=== PATIENT | female | born 1935 | race Caucasian/White ===

== ENCOUNTER 2021-06-25 15:03 | Emergency (ER) | payer MEDICARE, OTHER ==
[~2021-06-25] VITALS: Ht 154.9 cm; Wt 95.7 kg
[~2021-06-25 15:03] MED LIST: ATOR40TA PO; CARB1TAB22 PO; FURO20TA3 PO; HYDR-2761 PO; IRON18TA PO; METO25TA4 PO; MULT-245 PO; ROPI2TAB10 PO; TEMA15CA PO
--- NOTE | 2021-06-25 15:23 | PHYS DOC ---
Past Medical History Additional Past Medical Histor: Parkinson's (JUAN JOSE MENDIETA) Additional Past Surgical Histo: Valve replacement 01/20 (JUAN JOSE MENDIETA) Smoking Status: Former Smoker (JUAN JOSE MENDIETA) Adult General Chief Complaint Chief Complaint: CHEST PAIN HPI HPI Patient is a 86 year old female who presents via EMS from home with 3 days of back pain that began radiating to her chest last night. Patient is a poor historian. She states she has had left-sided back pain for the past 3 days, which began radiating to her central chest last night. She describes the pain as aching, like a "muscle cramp that will not let loose." She rates her pain / en route, though EMS says that she was grimacing and appeared in distress secondary to pain. Patient reports the pain has gotten worse since onset. Patient received 6 morphine and 325 aspirin via EMS, and now rates that her pain is 0. She states she has been "stretching to get things" more often than normal. Patient has past medical history that includes Parkinson's and a valve replacement in 12/2020, per EMS. Patient denies using any oxygen at home. EMS reports patient's blood glucose was 117 and her blood pressure was 130s/70s. Patient states she does have a medication list, but it is not with her right now. Patient's daughter is on the way and can hopefully provide more information on the patient's past medical history. (JUAN JOSE MENDIETA) Review of Systems Review of Systems Constitutional: Denies fever or chills Eyes: Denies change in visual acuity, redness, or eye pain HENT: Denies nasal congestion or sore throat Respiratory: Denies cough or shortness of breath Cardiovascular: See HPI GI: Denies abdominal pain, nausea, vomiting, bloody stools or diarrhea : Denies dysuria or hematuria Musculoskeletal: See HPI Integument: Denies rash or skin lesions Neurologic: Denies headache, focal weakness or sensory changes (JUAN JOSE MENDIETA) Allergies Allergies Allergies Coded Allergies Type Severity Reaction Last Updated Verified No Known Drug Allergies 06/25/21 No (ADONIS MALHOTRA DO) Physical Exam Physical Exam Constitutional: Well developed, well nourished, no acute distress, non-toxic appearance. HENT: Normocephalic, atraumatic, bilateral external ears normal, oropharynx moist, nose normal. Eyes: PERRLA, EOMI, conjunctiva normal, no discharge. Neck: Normal range of motion, no tenderness, supple, no stridor. Cardiovascular: Heart rate regular rhythm, no obvious murmur. Lungs & Thorax: Breath sounds diminished anteriorly in bilateral bases. No wheezing, rales, rhonchi. Abdomen: Protuberant abdomen, bowel sounds normal, soft, no tenderness, no masses, no pulsatile masses. Skin: Warm, dry, no erythema, no rash. Back: No step-offs, no bony tenderness, left-sided thoracic paraspinal tenderness appreciated, no CVA tenderness. Extremities: No tenderness, no cyanosis, no clubbing, ROM intact, no edema. Neurologic: Alert and oriented x3, motor strength 4/5 in extremities x4 consistent with age, normal sensory function, no focal deficits noted. Resting tremor noted consistent with history of Parkinson's disease. (JUAN JOSE MENDIETA) Current Patient Data Vital Signs Vital Signs Date Time Temp Pulse Resp B/P (MAP) Pulse Ox O2 Delivery O2 Flow Rate FiO2 06/25/21 20:29 90 20 165/66 (99) Room Air 06/25/21 20:07 92 06/25/21 15:19 97.8 2.0 97.8 (ADONIS MALHOTRA ) Lab Values Laboratory Tests Test 06/25/21 15:52 06/25/21 16:30 06/25/21 18:40 06/25/21 19:32 White Blood Count 7.4 x10^3/uL (4.0-11.0) Red Blood Count 3.73 x10^6/uL (3.50-5.40) Hemoglobin 9.2 g/dL (12.0-15.5) L Hematocrit 28.7 % (36.0-47.0) L Mean Corpuscular Volume 77 fL (79-100) L Mean Corpuscular Hemoglobin 25 pg (25-35) Mean Corpuscular Hemoglobin Concent 32 g/dL (31-37) Red Cell Distribution Width 18.3 % (11.5-14.5) H Platelet Count 351 x10^3/uL (140-400) Neutrophils (%) (Auto) 66 % (31-73) Lymphocytes (%) (Auto) 20 % (24-48) L Monocytes (%) (Auto) 9 % (0-9) Eosinophils (%) (Auto) 4 % (0-3) H Basophils (%) (Auto) 1 % (0-3) Neutrophils # (Auto) 4.9 x10^3/uL (1.8-7.7) Lymphocytes # (Auto) 1.5 x10^3/uL (1.0-4.8) Monocytes # (Auto) 0.7 x10^3/uL (0.0-1.1) Eosinophils # (Auto) 0.3 x10^3/uL (0.0-0.7) Basophils # (Auto) 0.1 x10^3/uL (0.0-0.2) Sodium Level 137 mmol/L (136-145) Potassium Level 4.6 mmol/L (3.5-5.1) Chloride Level 102 mmol/L (98-107) Carbon Dioxide Level 29 mmol/L (21-32) Anion Gap 6 (6-14) Blood Urea Nitrogen 15 mg/dL (7-20) Creatinine 0.8 mg/dL (0.6-1.0) Estimated GFR (Cockcroft-Gault) 68.2 BUN/Creatinine Ratio 19 (6-20) Glucose Level 102 mg/dL (70-99) H Calcium Level 9.2 mg/dL (8.5-10.1) Total Bilirubin 0.4 mg/dL (0.2-1.0) Aspartate Amino Transferase (AST) 36 U/L (15-37) Alanine Aminotransferase (ALT) 16 U/L (14-59) Alkaline Phosphatase 137 U/L (46-116) H Troponin I Quantitative < 0.017 ng/mL (0.000-0.055) < 0.017 ng/mL (0.000-0.055) Total Protein 7.1 g/dL (6.4-8.2) Albumin 3.3 g/dL (3.4-5.0) L Albumin/Globulin Ratio 0.9 (1.0-1.7) L Prothrombin Time 12.2 SEC (11.7-14.0) Prothrombin Time INR 0.9 (0.8-1.1) Urine Collection Type Unknown Urine Color Yellow Urine Clarity Cloudy Urine pH 7.0 (<5.0-8.0) Urine Specific [place] 1.015 (1.000-1.030) Urine Protein Negative mg/dL (NEG-TRACE) Urine Glucose (UA) Negative mg/dL (NEG) Urine Ketones (Stick) Negative mg/dL (NEG) Urine Blood Negative (NEG) Urine Nitrite Negative (NEG) Urine Bilirubin Negative (NEG) Urine Urobilinogen Dipstick 0.2 mg/dL (0.2 mg/dL) Urine Leukocyte Esterase Negative (NEG) Urine RBC 3-5 /HPF (0-2) Urine WBC 0 /HPF (0-4) Urine Squamous Epithelial Cells Mod /LPF Urine Amorphous Sediment Present /HPF Urine Bacteria 0 /HPF (0-FEW) Urine Hyaline Casts Few /HPF Laboratory Tests 06/25/21 15:52 Laboratory Tests 06/25/21 15:52 (ADONIS MALHOTRA DO) Lab Values Laboratory Tests Test 06/25/21 15:52 06/25/21 16:30 06/25/21 18:40 White Blood Count 7.4 x10^3/uL (4.0-11.0) Red Blood Count 3.73 x10^6/uL (3.50-5.40) Hemoglobin 9.2 g/dL (12.0-15.5) L Hematocrit 28.7 % (36.0-47.0) L Mean Corpuscular Volume 77 fL (79-100) L Mean Corpuscular Hemoglobin 25 pg (25-35) Mean Corpuscular Hemoglobin Concent 32 g/dL (31-37) Red Cell Distribution Width 18.3 % (11.5-14.5) H Platelet Count 351 x10^3/uL (140-400) Neutrophils (%) (Auto) 66 % (31-73) Lymphocytes (%) (Auto) 20 % (24-48) L Monocytes (%) (Auto) 9 % (0-9) Eosinophils (%) (Auto) 4 % (0-3) H Basophils (%) (Auto) 1 % (0-3) Neutrophils # (Auto) 4.9 x10^3/uL (1.8-7.7) Lymphocytes # (Auto) 1.5 x10^3/uL (1.0-4.8) Monocytes # (Auto) 0.7 x10^3/uL (0.0-1.1) Eosinophils # (Auto) 0.3 x10^3/uL (0.0-0.7) Basophils # (Auto) 0.1 x10^3/uL (0.0-0.2) Sodium Level 137 mmol/L (136-145) Potassium Level 4.6 mmol/L (3.5-5.1) Chloride Level 102 mmol/L (98-107) Carbon Dioxide Level 29 mmol/L (21-32) Anion Gap 6 (6-14) Blood Urea Nitrogen 15 mg/dL (7-20) Creatinine 0.8 mg/dL (0.6-1.0) Estimated GFR (Cockcroft-Gault) 68.2 BUN/Creatinine Ratio 19 (6-20) Glucose Level 102 mg/dL (70-99) H Calcium Level 9.2 mg/dL (8.5-10.1) Total Bilirubin 0.4 mg/dL (0.2-1.0) Aspartate Amino Transferase (AST) 36 U/L (15-37) Alanine Aminotransferase (ALT) 16 U/L (14-59) Alkaline Phosphatase 137 U/L (46-116) H Troponin I Quantitative < 0.017 ng/mL (0.000-0.055) < 0.017 ng/mL (0.000-0.055) Total Protein 7.1 g/dL (6.4-8.2) Albumin 3.3 g/dL (3.4-5.0) L Albumin/Globulin Ratio 0.9 (1.0-1.7) L Prothrombin Time 12.2 SEC (11.7-14.0) Prothrombin Time INR 0.9 (0.8-1.1) Laboratory Tests 06/25/21 15:52 Laboratory Tests 06/25/21 15:52 (JUAN JOSE MENDIETA) EKG EKG EKG Interpreted by Dr. Dooley at 1514: Regular rate 80 bpm with possible atrial flutter. No PACs. No PVCs. Additionally, possible peaked T waves in leads V2V5. Significant artifact secondary to Parkinson's tremor. EKG Interpreted by Dr. Malhotra at 1855: Regular rate and rhythm 81 bpm with no ectopic beats. No STEMI. (JUAN JOSE MENDIETA) Radiology/Procedures Radiology/Procedures PROCEDURE: PORTABLE CHEST 1V AP chest. HISTORY: Chest pain AP view was taken of the chest. Heart is normal in size. The aorta is tortuous. There is linear scarring or atelectasis in the left lung base. There is minimal scarring or atelectasis at the right costophrenic angle. There are no new confluent infiltrates. The aorta is tortuous without change. IMPRESSION: 1. Mild basilar linear scarring or atelectasis. 2. No new infiltrates. Electronically signed by: Naldo Camargo MD (06/25/2021 3:32 PM) [facility] (JUAN JOSE MENDIETA) Course & Med Decision Making Course & Med Decision Making Pertinent Labs and Imaging studies reviewed. (See chart for details) Patient's daughter did not have a lot of additional information regarding the patient's past medical history. She states that the patient takes "a lot of medications every day." She believes that the valve that was replaced in December of this year was her aortic valve, but she is unsure. Daughter states that patient is now on a blood thinner. 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 Patient's daughter states that the patient lives on the main floor of her home mostly by herself, however a close family friend has rented out the basement for years and helps take care of the patient. In further questioning, it is revealed that the patient has been doing some physical therapy work that includes an elliptical. Patient is not typically active on a daily basis. She has recently had increased physical activity. Work-up today did not reveal any cardiac etiology of the patient's symptoms. Patient will be discharged home with instruction to take [id number] Tylenol for body aches. She should follow-up with her primary care provider regarding her current symptoms. As she has no urinary symptoms, she will be contacted if urinalysis comes back positive for UTI. Patient and daughter understand and are agreeable to discharge plan. (JUAN JOSE MENDIETA) Course & Med Decision Making I have participated in the care of this patient and I have reviewed and agree with all pertinent clinical information above including history, exam, and recommendations. Adonis Malhotra DO (ADONIS MALHOTRA DO) Shola Disclaimer Dragon Disclaimer This electronic medical record was generated, in whole or in part, using a voice recognition dictation system. (JUAN JOSE MENDIETA) Departure Departure Impression: Primary Impression: Muscle strain of shoulder region Additional Impression: Anemia Disposition: 01 HOME / SELF CARE / HOMELESS Condition: STABLE Referrals: TONY LING MD (PCP) Patient Instructions: Muscle Strain, [id number] Additional Instructions: Your work-up today did not show any cardiac events. You may follow-up with your primary care provider regarding some anemia shown on lab work and any further muscle pain secondary to physical therapy. Please return to the emergency department if your pain worsens or you develop new symptoms. Problem Qualifiers Primary Impression: Muscle strain of shoulder region Encounter type: initial encounter Laterality: left Qualified Codes: S46.912A - Strain of unspecified muscle, fascia and tendon at shoulder and upper arm level, left arm, initial encounter Additional Impression: Anemia Anemia type: unspecified type Qualified Codes: D64.9 - Anemia, unspecified JUAN JOSE MENDIETA Jun 25, 2021 15:23 ADONIS MALHOTRA DO Jun 25, 2021 21:27
--- NOTE | 2021-06-25 15:34 | RAD ---
AP chest. HISTORY: Chest pain AP view was taken of the chest. Heart is normal in size. The aorta is tortuous. There is linear scarr ing or atelectasis in the left lung base. There is minimal scarring or atelectasis at the right costo phrenic angle. There are no new confluent infiltrates. The aorta is tortuous without change. IMPRESSION: 1. Mild basilar linear scarring or atelectasis. 2. No new infiltrates. Electronically signed by: Naldo Camargo MD (06/25/2021 3:32 PM) [facility]
[2021-06-25 16:04] LABS: BASO # 0.1 x10^3/uL (0.0-0.2); BASO % 1 % (0-3); EOS # 0.3 x10^3/uL (0.0-0.7); EOS % 4 % (0-3); HEMATOCRIT 28.7 % (36.0-47.0); HEMOGLOBIN 9.2 g/dL (12.0-15.5); LYMPH # 1.5 x10^3/uL (1.0-4.8); LYMPH % 20 % (24-48); MEAN CORPUSCULAR HEMOGLOBIN 25 pg (25-35); MEAN CORPUSCULAR HGB CONC 32 g/dL (31-37); MEAN CORPUSCULAR VOLUME 77 fL (79-100); MONO # 0.7 x10^3/uL (0.0-1.1); MONO % 9 % (0-9); NEUT # 4.9 x10^3/uL (1.8-7.7); NEUT % 66 % (31-73); PLATELET COUNT 351 x10^3/uL (140-400); RED BLOOD COUNT 3.73 x10^6/uL (3.50-5.40); RED CELL DISTRIBUTION WIDTH 18.3 % (11.5-14.5); WHITE BLOOD COUNT 7.4 x10^3/uL (4.0-11.0)
[2021-06-25 16:11] LABS: CALCIUM 9.2 mg/dL (8.5-10.1); CREATININE 0.8 mg/dL (0.6-1.0); GFR 68.2; POTASSIUM 4.6 mmol/L (3.5-5.1)
[2021-06-25 16:17] LABS: ALBUMIN 3.3 g/dL (3.4-5.0); ALBUMIN/GLOBULIN RATIO 0.9 (1.0-1.7); TOTAL BILIRUBIN 0.4 mg/dL (0.2-1.0); TOTAL PROTEIN 7.1 g/dL (6.4-8.2)
[2021-06-25 17:03] LABS: PROTHROMBIN TIME PATIENT 12.2 SEC (11.7-14.0)
[2021-06-25 19:44] LABS: BILIRUBIN,URINE NEGATIVE (NEG); CLARITY,URINE CLOUDY; COLOR,URINE YELLOW; NITRITE,URINE NEGATIVE (NEG); PROTEIN,URINE NEGATIVE (NEG-TRACE); UROBILINOGEN,URINE 0.2 mg/dL (0.2 mg/dL)
[2021-06-25 19:51] LABS: HYALINE CASTS, URINE FEW /HPF
[2021-06-25 19:52] LABS: AMORPHOUS SEDIMENT,UR PRESENT /HPF; BACTERIA,URINE 0 /HPF (0-FEW); WBC,URINE 0 /HPF (0-4)
[2021-06-25 20:29] VITALS: BP 165/66
--- NOTE | 2021-06-26 01:08 | EKG ---
[facility] [address] [place] [address] Test Date: 2021-06-25 Test Time: 18:52:38 Pat Name: HGADA PHAM Department: Room: Gender: F Business Services Analyst: : [id number] Requested By: JUAN JOSE MENDIETA Order Number: [id number] Reading MD: George Vann MD Measurements Intervals [place] Rate: 81 P: 33 ME: 164 QRS: -9 QRSD: 92 T: 35 QT: 374 QTc: 435 Interpretive Statements SINUS RHYTHM Electronically Signed On 06-26-2021 8:46:41 CDT by George Vann MD
== END 2021-06-25 20:48 | disposition home or self-care (01) ==
LOC: ER 15:03
DX: S46.912A Strain of unspecified muscle, fascia and tendon at shoulder and upper arm level, left arm, initial encounter (principal); D64.9 Anemia, unspecified; Z87.891 Personal history of nicotine dependence; X58.XXXA Exposure to other specified factors, initial encounter; Y93.89 Activity, other specified; Y92.89 Other specified places as the place of occurrence of the external cause; Y99.8 Other external cause status
CPT/HCPCS: 36415; 71045; 80053; 81001; 84484; 85025; 85610; 93005; 99285-25